=== PATIENT | male | born 1960 | race Caucasian/White ===

== ENCOUNTER 2016-12-21 17:07 | Observation (INO) | payer OTHER ==
[~2016-12-21] VITALS: Ht 182.9 cm; Wt 72.3 kg
[2016-12-21 17:07] VITALS: BP 116/84; PULSE 112; RESP 16; O2SAT 100
[2016-12-21 17:16] VITALS: BP 116/80; PULSE 110; RESP 16; O2SAT 98
[2016-12-21 17:36] LABS: BASOPHILS % (AUTO) 0.5 % (0-3); EOSINOPHILS % (AUTO) 1.7 % (0-5); MONOCYTES % (AUTO) 10.9 % (4-12); Mean Corpuscular Hemoglobin 28.2 pg (27.0-35.0); Mean Corpuscular Volume 90.9 fL (81-100); NEUTROPHILS % (AUTO) 71.8 % (40-74); Platelet Count 352 bil/L (150-400)
[2016-12-21 18:06] VITALS: BP 122/82; PULSE 102; RESP 17; O2SAT 96
[2016-12-21 18:08] LABS: TROPONIN T < 0.010 ug/L (0.0-0.011)
[2016-12-21 18:14] LABS: Magnesium 1.4 mg/dL (1.6-2.6)
--- NOTE | 2016-12-21 18:43 | DRSVH ---
PROCEDURE: X-RAY CHEST ONE VIEW, PORTABLE ([id number]) INDICATIONS: rapid heart rate TECHNIQUE: One view of the chest was acquired. COMPARISON: [facility], CR, XR CHEST 1V PORTABLE, 10/29/2016, 7:39 AM. [facility], CR, XR CHEST 2V AP/PA AND LAT, 12/20/2016, 4:38 PM. FINDINGS: Surgical changes and devices: None. Lungs and pleura: Left lower lobe infiltrate has increased, consistent with worsening of pneumonia. There is a small left pleural effusion. No pneumothorax. Mediastinum: Mediastinal contours appear normal. Heart size is normal. Bones and chest wall: No suspicious bony lesions. Overlying soft tissues appear unremarkable. IMPRESSION: Worsening of left lower lobe pneumonia. Dictated by: Nikki Cummings M.D. on 12/21/2016 at 18:38 Approved by: Nikki Cummings M.D. on 12/21/2016 at 18:41
[2016-12-21] MEDS ORDERED: oxyCODONE-Acetamin 5-325 mg Tablet PO PRN (20:40)
[2016-12-21] MEDS ORDERED: Piperacillin-Tazo 3.375 Gm Inj 3.375 GM in Dextrose 5% Minibag Plus 50 ML IV ONE (20:40)
[2016-12-21] MEDS ORDERED: 0.9% Sodium Chloride 1,000 ML IV ONE ×2 (20:40→22:05)
--- NOTE | 2016-12-21 20:47 | ED.REPORT ---
HPI-General Illness Date of Service Dec 21, 2016 ED Provider: Maisha Winchester MD History of Present Illness: Louie Andersen is a 56 year old man with a PMH of HTN, alcoholism, hypothyroid, microcytic anemia, and a recent CCU stay between 10/28/16 and 11/15/16 for pneumonia and sepsis. He states that he is about 20-30% of his pre CCU level of health, and that today he began to experience palpitations and sought evaluation by an onsite EMT at his work place who advised him to present to the ED for further evaluation. He denies chest pain, SOB, increased CASH beyond his current deconditioning, sweating, or any anxious sense of impending doom. Nursing Notes Stated Complaint: RAPIT HEART RATE Chief Complaint: Dysrhythmia/Cardiac Nursing Notes Reviewed: Yes Allergies: Coded Allergies: No Known Allergies (Verified , 12/21/16) Uncoded Allergies: No Known Allergies (Allergy, Severe, 05/16/04) Scheduled Allopurinol (Allopurinol) 100 Mg Tablet 100 MG PO BID Ascorbic Acid (Vitamin C) 1,000 Mg Tab.chew 1,000 MG PO DAILY Hydrochlorothiazide (Hydrochlorothiazide) 25 Mg Tablet 25 MG PO DAILY Metoprolol Succinate ER (Metoprolol Succinate ER) 100 Mg Tab.er.24h 100 MG PO DAILY Omeprazole (Omeprazole) 20 Mg Capsule.dr 20 MG PO QAM Scheduled PRN Albuterol HFA (Proair HFA) 8.5 Gm Hfa.aer.ad 2 PUFFS INHALATION Q4H PRN PRN For Shortness of Breath Oxycodone (Roxicodone) 5 Mg Tablet 5 MG PO Q4H PRN PRN For Pain General Time Seen by MD: 19:30 Chief Complaint Not feeling well Hx Obtained From: Patient Sudden in Onset?: Yes Onset Occurred: Just prior to arrival Symptom Duration: Waxes and wanes Severity: Current: No pain currently Severity: Maximum: No pain Recent Healthcare: Recent hospitalization Similar Sx Previous: Yes Review of Systems Full Review of Systems Constitutional: Reports: Weakness - generalized Cardiovascular: Reports: Palpitations Complete sys rev & neg: except as marked. Physical Exam Gen: A/O x3 pleasant cooperative man anxious to leave ED, NAD Neck: Supple, non tender, Full ROM, no thyromegally HEENT: PERRL, EOMI, no scleral icterus, no conjunctival pallor CV: Tachycardia with rate approx 120, regular Rhythm, no murmurs rubs or gallops Resp: Lungs CTA BL, no wheezing rales or rhonchi Extr: No cyanosis clubbing or edema Neuro: CN 2-12 grossly intact, no focal neurologic deficit. Vital Signs Vital Signs Date Time Temp Pulse Resp B/P Pulse Ox O2 Delivery O2 Flow Rate FiO2 12/21/16 21:37 94 18 140/95 98 Room Air 12/21/16 18:06 102 17 122/82 96 Room Air 12/21/16 17:16 110 16 116/80 98 12/21/16 17:07 36.7 112 16 116/84 100 Room Air Initial VS: Reviewed Interpretation & Diagnostics Lab Results Interpretation Result Diagram: 12/21/16 1724 12/21/16 1724 Test 12/21/16 17:24 White Blood Count 8.3th/mm3 (3.8-10.1) Red Blood Count 3.30mil/mm3 (4.40-5.80) Hemoglobin 9.3g/dL (13.8-17.2) Hematocrit 30.0% (41.0-50.0) Mean Corpuscular Volume 90.9fL (81-100) Mean Corpuscular Hemoglobin 28.2pg (27.0-35.0) Mean Corpuscular Hemoglobin Concent 31.0% (32.0-37.0) Red Cell Distribution Width 17.5% (12.3-15.4) Platelet Count 352bil/L (150-400) Neutrophils (%) (Auto) 71.8% (40-74) Lymphocytes (%) (Auto) 14.9% (14-46) Monocytes (%) (Auto) 10.9% (4-12) Eosinophils (%) (Auto) 1.7% (0-5) Basophils (%) (Auto) 0.5% (0-3) Prothrombin Time 9.5sec (8.1-12.5) Prothromb Time International Ratio 0.89ratio Sodium Level 136mEq/L (134-144) Potassium Level 4.1mEq/L (3.5-5.2) Chloride Level 102mEq/L (97-108) Carbon Dioxide Level 22mmol/L (18-29) Blood Urea Nitrogen 15mg/dL (6-24) Creatinine 0.59mg/dL (0.76-1.27) Estimat Glomerular Filtration Rate 152mL/min (>59) Glucose Level 107mg/dL (60-99) Calcium Level 8.5mg/dL (8.5-10.1) Magnesium Level 1.4mg/dL (1.6-2.6) Total Bilirubin 0.2mg/dL (0.0-1.2) Aspartate Amino Transf (AST/SGOT) 13U/L (0-50) Alanine Aminotransferase (ALT/SGPT) 8U/L (0-44) Alkaline Phosphatase 163U/L (25-150) Troponin T < 0.010ug/L (0.0-0.011) Total Protein 6.8g/dL (6.4-8.4) Albumin 3.3g/dL (3.4-5.0) Procalcitonin 0.04ng/mL (0.00-0.08) Thyroid Stimulating Hormone (TSH) 4.210uIU/mL (0.450-4.500) Free Thyroxine 0.79ng/dL (0.82-1.77) Hold Loera Top Tube Received (Received) Re-Eval/Medical Decision Med Decision/Clinical Course This is a patient who was recently in the ICU for 2 weeks with 9 days of intubation for pneumonia and sepsis now presenting with tachycardia and an LLL infiltrate on CXR. Blood and sputum cultures were drawn prior to administration of antibiotics. Given the patient's risk for HCAP or VAP it was felt prudent to admit this gentleman for IV antibiotics and further observation and evaluation. Counseled Regarding: Diagnosis, Lab results, Need for admission Discharge & Departure Shift Change Sign-Out Patient Care Transferred: No Discussed Complaint(s): Yes Laboratory Evaluation: Lab evaluation discussed Imaging Studies: Imaging discussed Primary Impression: HCAP (healthcare-associated pneumonia) Disposition: ADMITTED TO HOSPITAL Discharge Condition All VS Reviewed: Yes Condition: Stable Referrals: Krishna Cortes MD (PCP) Attending Statement I agree with resident's note. 56-year-old male with recent ICU admission for pneumonia requiring intubation and pressors here with tachycardia and worsening pneumonia on chest x-ray. At this time, his blood pressure is normal and he does not require further intervention. He has been given broad-spectrum antibiotics to cover for healthcare associated pneumonia and admitted to the hospitalist service. copies to: Krishna Cortes MD, David E DO Dec 21, 2016 19:32 Maisha Winchester MD Dec 22, 2016 00:12
[2016-12-21] MEDS ORDERED: Vancomycin Inj 1,500 MG in 0.9% Sodium Chloride 500 ML IV ONE (20:50)
[2016-12-21] MEDS ORDERED: Ciprofloxacin Inj 400 MG in IV Premix 1 EACH IV ONE (21:05)
[2016-12-21] MEDS ORDERED: Levofloxacin 750 mg/150 mL D5W IV ONE (21:10)
[2016-12-21] MEDS ORDERED: OXYC-474 PO (21:15)
[2016-12-21] MEDS ORDERED: ALBU8.5H2 INHALATION (21:15)
[2016-12-21] MEDS ORDERED: METO-274 PO (21:15)
[2016-12-21] MEDS ORDERED: ASCO100089 PO (21:15)
[2016-12-21] MEDS ORDERED: HYDR25TA4 PO (21:15)
[2016-12-21] MEDS ORDERED: OMEP20CA11 PO (21:15)
[2016-12-21] MEDS ORDERED: ZYL100 PO (21:15)
[2016-12-21 21:37] VITALS: BP 140/95; PULSE 94; RESP 18; O2SAT 98
[2016-12-21] MEDS ORDERED: Albuterol 2.5 mg/3 mL Inhalation Solution NEB PRN (21:40)
[2016-12-21] MEDS ORDERED: Alum-Mag Hydrox-Simeth 30 mL Suspension PO PRN (21:40)
[2016-12-21] MEDS ORDERED: Polyethylene Glycol (PEG) 17 Gm Powder PO PRN (21:40)
[2016-12-21 23:07] VITALS: BP 125/76; PULSE 95; RESP 18; O2SAT 97
[2016-12-21 23:26] LABS: INR 0.89 ratio
[2016-12-21] MEDS ORDERED: Vancomycin Dose per Pharmacist XX SCH (23:35)
--- NOTE | 2016-12-21 23:56 | PCM.HPMED ---
Subjective Date of Service Dec 21, 2016 Primary Provider: Admitting Physician: Anni Melgar DO Primary Care Physician: Teresa Hernandez MD Attending Physician: Anni Melgar DO Admit Status: From the Emergency Department Chief Complaint: Heart palpitations and not feeling well History of Present Illness: 56-year-old male with past medical history of hypertension, hyperlipidemia, alcoholism, and recent hospitalization for respiratory failure presented to the emergency department via EMS after feeling heart palpitations while at work. According to the medics he was found to be in atrial fibrillation with a rate between 150 and 200, he was given Cardizem enroute. Patient was hospitalized October 28 through November 15, 2016, he was intubated for 9 of those days. Since that time she has continued to be tired and have musculoskeletal pain that tends to move around to different parts of his body. He reports being at work this morning with no acute worsening of any symptoms however he started to feel dizzy and had a flutter in his chest. He sought evaluation from an on- site EMT at his workplace who advised he take the ambulance to the emergency department. Aside from the lightheadedness he reports no associated symptoms at the time of the event. However, in the last 2-3 weeks he has been experiencing some fluttery feelings in his chest, it is worse with lying down. For the last 2-3 nights it has happened every night while lying in bed. He will take some additional pain medicine and fall asleep, the feeling will be gone when he awakes in the morning. He continues to have some pain with deep breaths which has been consistent since discharge from hospital. Patient reports neuropathy in feet that is improving, he describes "phantom" pains throughout his body that come and go. He does report a 30 pound weight loss associated with his hospitalization. He reports mild shortness of breath that has been stable, no chest pain or pressure, no diaphoresis, no abdominal pain. In the emergency department patient was found to have sinus tachycardia initially at a rate of 112. Otherwise normal vital signs, he has a worsening left lower lobe pneumonia seen on chest x-ray. Laboratory evaluation revealed anemia with a hemoglobin of 9.3 and hematocrit of 30, magnesium 1.4, negative troponin, and pro-calcitonin 0.04. Review of Systems: A comprehensive review of systems was conducted with the patient and found to be negative except as above in the History of Present Illness. Allergies Coded Allergies: No Known Allergies (Verified , 12/21/16) Uncoded Allergies: No Known Allergies (Allergy, Severe, 05/16/04) Home Medications 1. albuterol HFA 2 puffs inhaled every 4 hours when necessary for shortness of breath 2. Allopurinol 100 mg by mouth twice a day 3. Vitamin C 1000 mg by mouth daily 4. Hydrochlorothiazide 25 mg daily 5. Metoprolol succinate ER 100 mg by mouth daily 6. Omeprazole 20 mg by mouth every morning 7. Oxycodone 5 mg by mouth every 4 hours when necessary for pain 8. Imodium 8 mg by mouth every a.m. 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 He is able to ambulate independently Exam Vital Signs Vital Sign - Last Date Time Temp Pulse Resp B/P Pulse Ox O2 Delivery O2 Flow Rate FiO2 12/21/16 21:37 94 18 140/95 98 Room Air 12/21/16 17:07 36.7 Exam General: No acute distress, well-developed, well-nourished, appropriately interactive HEENT: Normocephalic, atraumatic. External ears without defect. Pupils equal, round, and reactive to light and accommodation. Anicteric sclerae, moist conjunctivae, and no lid lag. Enlarged erythematous nose, Oropharynx free of erythema and cobble stoning with moist mucosa. Neck: Supple with full range of motion. No jugular venous distension. No bruits. No lymphadenopathy or thyromegaly. Cardiovascular: Regular rate (90's) and rhythm with no murmurs, rubs, or gallops appreciated Pulmonary: Crackles prominent in left lung base, no wheezes, or rhonchi. Normal respiratory effort with no use of accessory muscles. Abdomen: Bowel tones present. Soft, nontender, nondistended. No hepatosplenomegaly or masses appreciated. Extremities: No clubbing, cyanosis, edema, or lymphadenopathy appreciated. Skin: Normal temperature, turgor, and texture; no rash, ulcers, or subcutaneous nodules appreciated. Neurological: Cranial nerves grossly intact. Normal muscle strength, tone, and bulk. No known gait impairment. Psychiatric: Normal mood and affect. Alert and oriented to person, place, and time. Lab and Diagnostics Labs Prognosis troponins 0.04 Troponin less than 0.01 Magnesium 1.4 Result Diagram: 12/21/16172312/21/16 172 X-Rays, CTs and MRIs PROCEDURE: X-RAY CHEST ONE VIEW, PORTABLE ([id number]) COMPARISON: [facility], CR, XR CHEST 1V PORTABLE, 10/29/2016, 7: 39 AM. [facility], CR, XR CHEST 2V AP/PA AND LAT, 12/20/2016, 4: 38 PM. IMPRESSION: Worsening of left lower lobe pneumonia. Dictated by: Nikki Cummings M.D. on 12/21/2016 at 18:38 Assessment & Plan 56-year-old male with past medical history of hypertension, hyperlipidemia, alcoholism presented to the emergency department via EMS after feeling heart palpitations while at work. According to the medics he was found to be in atrial fibrillation with a rate between 150 and 200, he was given Cardizem by the medics. He had a recent hospital stay including 9 days of intubation at [facility] from October 28 to 11/25/2016. On x-ray he has a left lower lobe infiltrate 1. Health care associated pneumonia with history of mechanical ventilation, present on admission, acute - Patient with hospitalization at [facility] from October 28 to 2016 including 9 days of intubation - Chest x-ray shows worsening left lower lobe pneumonia - Droplet precautions - Respiratory viral PCR, strep pneumo and legionella urine antigens - Sputum culture - MRSA nasal screen - Patient started on vancomycin, Zosyn, and levofloxacin in emergency department continue these antibiotics, narrow therapy when appropriate - Incentive spirometer 2. New onset atrial fibrillation with Rapid ventricular response, present on admission, resolved - Patient reports feeling some palpitations while lying in bed at night or sitting at a desk over the last week he has felt them daily in the last 3-4 days each episode would last more than a few minutes, at night he would fall asleep and they would be gone when he woke up. - [id number] score is 1 for Hypertension making patient appropriate for anticoagulation with warfarin, novel agent, or aspirin. - Patient has bled score is 2 for hypertension and alcohol use, he is at moderate risk for major bleed - Patient given single dose 80mg Lovenox - Day hospitalist to discuss anticoagulation options and initiate therapy - Stool guaiac ordered - Monitor patient on telemetry - Echocardiogram ordered 3. Alcoholism, present on admission, chronic - Patient drinks 6-7 shots of tequila and a couple beers per night. He restarted drinking about 2 weeks ago after his last hospitalization. - Patient is very functional with his drinking in that he goes to work daily. - Last drink was the evening of 12/20/2016 - CIDE protocol 4. Tobacco use, present on admission, chronic - Patient is currently smoking about 3 packs of cigarettes per week down from 1 pack per day prior to his recent hospitalization - Cessation counseling, discussed importance of tobacco cessation 5. Hypertension, present on admission, chronic - Continue metoprolol, hydrochlorothiazide - Patient has had lisinopril in the past however added to his other blood pressure medications it tends to decrease his blood pressure too much - Monitor vital signs every 4 hours 6. History of Hypothyroidism, present on admission, not currently active - Patient previously was taking levothyroxine however it has not been necessary in the last couple months so he was told to stop taking it. - TSH and free T4 ordered 7. History of gastric ulcers, present on admission, not currently active - Likely related to alcohol use - Continue PPI daily 8. Chronic pain, present on admission, chronic - Patient has been having various musculoskeletal pains that tend to migrate around his body since discharge from his ICU hospitalization - Patient states he is currently taking 10 mg hydrocodone every 4-6 hours in the form of Vicodin. - His most recent prescription on external medication history is for oxycodone 5 mg by mouth every 4 hours when necessary for pain - Continue home dose oxycodone. 9. History of opiate abuse, present on admission, chronic - 2 years ago patient had difficulty weaning off of opiate pain medication. He was seen at [facility] where he was able to wean with Suboxone over a year and a half. He had recently contacted [facility] who reports they no longer have this program. - mountain services manager consult for substance abuse and resources upon discharge 10. Chronic diarrhea, present on admission, active - Imodium daily - Florastor twice daily 11. Hypomagnesemia, present on admission, acute - 64 mg Slow-Mag daily - Serum magnesium in a.m. Acetaminophen for mild pain when necessary. Bowel regimen Senna and MiraLAX PRN. Zofran when necessary for nausea and vomiting. DVT prophylaxis with sub cutaneous Lovenox Patient was admitted under inpatient status with expected length of stay greater than 2 midnights due to severity of presenting symptoms, risk of adverse event, and complexity of treatment plan. Pain Evaluation: Adequate Pain Control GI Prophylaxis: Proton Pump Inhibitor VTE Prophylaxis: Sub-Q Enoxaparin VTE Mechanical Devices: Intermittant Pneumatic CD Resuscitation Status: CPR: Attempt Resuscitation Attending Statement The patient was seen and examined together with house staff on 12/21/16 and I agree with the history, exam and plan as outlined in the note above. Dorothy Casiano DO Dec 21, 2016 23:56 Anni Melgar DO Dec 22, 2016 03:41
[2016-12-22] VITALS (8 sets, daily range): BP systolic 126; BP diastolic 77–82; PULSE 92–103; RESP 16–20; O2SAT 95–100
[2016-12-22] MEDS ORDERED: Magnesium Sulf 2 Gm/50mL Water 2 GM in IV Premix 1 EACH IV ONE (00:15)
[2016-12-22] MEDS: Magnesium Chloride SR 64 mg ER24 Tablet PO SCH ×2 (00:39→08:42)
[2016-12-22] MEDS: Thiamine Inj 100 MG in 0.9% Sodium Chloride 100 ML IV SCH ×2 (00:40→08:41)
[2016-12-22] MEDS: Albuterol-Ipratropium 3 mL Inhalation Solution NEB SCH ×3 (00:46→09:44)
--- NOTE | 2016-12-22 00:58 | NUR ---
Admit received report from Kelsie Ennis from the ED. Pt arrived to room approximately at 2305 via gurney. Transferred self to bed. pt came with IV Levaquin was running at 100 ml/hr. Denies pain. VSS. pt on RA with SPO2 97%. will continue to monitor.
--- NOTE | 2016-12-22 01:33 | PCM.CONPHA ---
Subjective Date of Service: Dec 21, 2016 Requesting Provider: Laura Kwan Heart palpitations and not feeling well History of Present Illness Ventulator associated pneumonia (recent hospitalization last month with 9 days intubated) Reason for Pharmacy Consult: Vancomycin Dosing Objective Vital Signs Date Time Temp Pulse Resp B/P Pulse Ox O2 Delivery O2 Flow Rate FiO2 12/21/16 23:08 95 17 123/86 95 Room Air 12/21/16 23:07 36.4 95 18 125/76 97 Room Air 12/21/16 21:37 94 18 140/95 98 Room Air 12/21/16 18:06 102 17 122/82 96 Room Air 12/21/16 17:16 110 16 116/80 98 12/21/16 17:07 36.7 112 16 116/84 100 Room Air Intake and Output 12/20/16 12/21/16 12/22/16 00:00 00:00 00:00 Intake Total 2000 ml Balance 2000 ml Weight (Kilograms): 72.300 Height (Feet): 6 Height (Inches): 0.00 Test 12/21/16 17:24 White Blood Count 8.3th/mm3 (3.8-10.1) Red Blood Count 3.30mil/mm3 (4.40-5.80) Hemoglobin 9.3g/dL (13.8-17.2) Hematocrit 30.0% (41.0-50.0) Mean Corpuscular Volume 90.9fL (81-100) Mean Corpuscular Hemoglobin 28.2pg (27.0-35.0) Mean Corpuscular Hemoglobin Concent 31.0% (32.0-37.0) Red Cell Distribution Width 17.5% (12.3-15.4) Platelet Count 352bil/L (150-400) Neutrophils (%) (Auto) 71.8% (40-74) Lymphocytes (%) (Auto) 14.9% (14-46) Monocytes (%) (Auto) 10.9% (4-12) Eosinophils (%) (Auto) 1.7% (0-5) Basophils (%) (Auto) 0.5% (0-3) Prothrombin Time 9.5sec (8.1-12.5) Prothromb Time International Ratio 0.89ratio Sodium Level 136mEq/L (134-144) Potassium Level 4.1mEq/L (3.5-5.2) Chloride Level 102mEq/L (97-108) Carbon Dioxide Level 22mmol/L (18-29) Blood Urea Nitrogen 15mg/dL (6-24) Creatinine 0.59mg/dL (0.76-1.27) Estimat Glomerular Filtration Rate 152mL/min (>59) Glucose Level 107mg/dL (60-99) Calcium Level 8.5mg/dL (8.5-10.1) Magnesium Level 1.4mg/dL (1.6-2.6) Total Bilirubin 0.2mg/dL (0.0-1.2) Aspartate Amino Transf (AST/SGOT) 13U/L (0-50) Alanine Aminotransferase (ALT/SGPT) 8U/L (0-44) Alkaline Phosphatase 163U/L (25-150) Troponin T < 0.010ug/L (0.0-0.011) Total Protein 6.8g/dL (6.4-8.4) Albumin 3.3g/dL (3.4-5.0) Procalcitonin 0.04ng/mL (0.00-0.08) Thyroid Stimulating Hormone (TSH) 4.210uIU/mL (0.450-4.500) Free Thyroxine 0.79ng/dL (0.82-1.77) Hold Loera Top Tube Received (Received) Assessment/Plan Assessment/Plan A/ - 56 y/o male patient required Vancomycin therapy to treat ventilator associated pneumonia. He was hospitalized 9 days intubated in Nov, 2016 - Afebrile, WBC: 8.3, sputum, blood cultures (x2), MRSA: pending - In ED, received loading dose of Vancomycin 1.5g iv @2348, comitant abx(s) : levofloxacin, zosyn - Wt: 72.3 kg, ht: 182.9 cm, SCr: 0.59 mg/dL, est. clearance ~140 ml/min, BMI: 21.6 kg/m2, Vd ~ 51L P/ - Give Vancomycin 1.25G iv q8h. Trough level ordered before 4th dose @2130 on 12/22. This regimen would produce a trough around 16-17 Pharmacy will continue to monitor and make necessary adjustment Thank you for consulting clinical pharmacy in the care of this patient Bruno Cates PharmD, [facility] Elder Cates Dec 22, 2016 01:32
[2016-12-22] MEDS: Piperacillin-Tazo 3.375 Gm Inj 3.375 GM in Dextrose 5% Minibag Plus 50 ML IV SCH ×2 (01:59→09:56)
[2016-12-22] MEDS ORDERED: Vancomycin Inj 1,250 MG in 0.9% Sodium Chloride 250 ML IV SCH (06:00)
[2016-12-22 06:23] LABS: BASOPHILS % (AUTO) 0.3 % (0-3); EOSINOPHILS % (AUTO) 2.7 % (0-5); MONOCYTES % (AUTO) 5.1 % (4-12); Mean Corpuscular Hemoglobin 27.9 pg (27.0-35.0); Mean Corpuscular Volume 91.1 fL (81-100); NEUTROPHILS % (AUTO) 79.4 % (40-74); Platelet Count 303 bil/L (150-400)
[2016-12-22] MEDS ORDERED: Pantoprazole 20 mg ER24 Tablet PO SCH (06:30)
[2016-12-22 06:35] LABS: INR 0.96 ratio
[2016-12-22 06:51] LABS: Magnesium 1.4 mg/dL (1.6-2.6)
[2016-12-22] MEDS ORDERED: MeTOProlol XL 50 mg ER24 Tablet PO SCH (08:30)
[2016-12-22] MEDS ORDERED: Magnesium Chloride SR 64 mg ER24 Tablet PO SCH (08:30)
[2016-12-22] MEDS ORDERED: Ascorbic Acid 500 mg Tablet PO SCH (08:30)
[2016-12-22] MEDS ORDERED: Multivit-Miner-Folic Acid-Iron Tablet PO SCH (08:30)
--- NOTE | 2016-12-22 08:36 | NUR ---
Social Work: Brief Note Data: Pt is a 56 y/o male admitted for H/A Pneumonia. Pt's PCP is Dr Mix, pt's insurance is [employer]. Readmit score not listed. EMR reviewed. Per H&P, pt reports 6-7 shots of tequila and a couple beers per night and daily marijuana use. HAND SIGN WRITER will complete CD assessment when pt is appropriate to do so. HAND SIGN WRITER will continue to follow. Assessment: Pt who is independent at baseline. Plan: Pt will likely d/c home via POV with no d/c planning needs. HAND SIGN WRITER will complete CD assessment when pt is appropriate to do so. HAND SIGN WRITER will continue to follow. RODRI Méndez
[2016-12-22] MEDS ORDERED: Potassium Chloride 20 mEq SR Tablet PO ONE (09:10)
[2016-12-22] MEDS ORDERED: ASPI-973 PO (10:41)
[2016-12-22] MEDS ORDERED: AMOX500T2 PO ×2 (10:41→12:34)
--- NOTE | 2016-12-22 12:36 | PCM.DIMED ---
Danielle Huffman DO 12/22/16 1045: Discharge Instructions Date of Service Dec 22, 2016 Dates of Hospitalization Dec 21, 2016 at 21:52 Diet Heart Healthy Activity Limited until seen by PCP Call your provider Fever or Chills, Shortness of breath, Bleeding, Chest pain, Excessive diarrhea Patient Instructions Continue antibiotics for pneumonia. Take amoxicillin 1000 mg every 8 hours for 6 days. While taking antibiotics, you should also take probiotics, such as eating yogurt or sauerkraut. For atrial fibrillation, start taking aspirin 81 mg once daily. Follow up with your primary care provider in 1 week to have a repeat EKG to look for atrial fibrillation and to discuss possibly altering your anti-coagulation. At your follow up appointment with your primary care provider, you should discuss seeking treatment for opioid dependence. You should also follow up with a resident manager for further investigation into atrial fibrillation. Eat 2 bananas per day. Follow up BMP to check your potassium level in 1 week. Follow-up Provider: RACHEL GARCIA MD Follow-up with PCP in: 1 week William Corral DO 12/23/16 0716: Discharge Instructions Attending's Statement Read and agree Danielle Huffman DO Dec 22, 2016 10:45 William Corral DO Dec 23, 2016 07:16
--- NOTE | 2016-12-22 13:06 | NUR ---
Discharge Patient given discharge orders. Patient given medication list with written and verbal instructions when next dose of medication is due. Patient given follow up information. Patient given informational packets. Patient reminded to leave with all personal belongings. Patient awaiting transportation that is to arrive at 1330.
--- NOTE | 2016-12-22 13:12 | NUR ---
Social Work: Discharge Data: Pt is on day 1 of hospitalization. D/C orders are in. EMR reviewed. requested BAGGAGE SCREENER bring suboxone information for pt at his request. BAGGAGE SCREENER met with pt for Chemical Dependency assessment, see assessment note. Pt accepted information and phone number for [facility] and plans to call them first thing on Saturday morning to set up an appointment. No further d/c planning needs at this time. BAGGAGE SCREENER will continue to follow if needs arise. Assessment: Pt who is independent at baseline, hx of alcohol and oxy use. Plan: Pt will d/c home via POV today with information for [facility] for suboxone. No further d/c planning needs at this time. BAGGAGE SCREENER will continue to follow if needs arise. RODRI Méndez
--- NOTE | 2016-12-22 13:15 | NUR ---
Social Work: Chemical Dependency Assessment Current Circumstances: Pt was admitted on 12/21/16 for H/A pneumonia. Pt's states he is here because he got sick and wants to get off of the oxycodone he has been taking. Hx of substance use: Pt reports that he drinks alcohol and has since his 20's. He does not see this as a problem in his life stating that it only possibly affects his health. Pt states that he had hip surgery 3 years ago and was given oxycodone and he became addicted and continued to take it. Pt had a recent hospitalization in October of 2016 and states that he again was prescribed oxycodone and started using recreationally again. Hx of treatment: Pt states he went to [facility] for outpt treatment after his use of oxycodone in October of 2016. He states that they no longer do suboxone and that he wants to know current resources. Hx of withdrawal: Pt states that he feels horrible for a few weeks and gets diarrhea. Pt reports no alcohol withdrawals. Family Hx: Pt states he is adopted and that he doesn't know about his adoptive parent's drug use either. Hx of sobriety: Pt reports that he was clean of oxycodone for about 2 years. Pt has continued to drink alcohol daily. Patients perception of use: Pt states he wants to stop using oxycodone, but that he plans to keep drinking and smoking. Suicide Risk: Pt denies and suicidal or homicidal thoughts, ideas, or plans. Recommended Resources: Pt accepted the card for [facility] and declined any other resources stating that he will call them on Saturday morning to get an appointment. RODRI Méndez
--- NOTE | 2016-12-22 13:22 | PCM.DC.MED ---
Discharge Summary Date of Service Dec 22, 2016 Dates of Hospitalization Date of Hospital Admission Dec 21, 2016 at 21:52 Date of Discharge: Dec 22, 2016 Providers: Admitting Physician: Anni Melgar DO Primary Care Physician: Teresa Hernandez MD Attending Physician: Anni Melgar DO Diagnosis at Time of Discharge Diagnosis at Time of Discharge 1. Health care associated pneumococcal pneumonia with history of mechanical ventilation 2. New onset atrial fibrillation with Rapid ventricular response 3. Hypokalemia 4. Alcoholism 5. Tobacco use 6. Hypertension 7. History of Hypothyroidism 8. History of gastric ulcers 9. Chronic pain 10. History of opiate abuse 11. Chronic diarrhea 12. Hypomagnesemia Procedures XRay, CTs & MRIs PROCEDURE: X-RAY CHEST ONE VIEW, PORTABLE ([id number]) COMPARISON: [facility], CR, XR CHEST 1V PORTABLE, 10/29/2016, 7: 39 AM. [facility], CR, XR CHEST 2V AP/PA AND LAT, 12/20/2016, 4: 38 PM. IMPRESSION: Worsening of left lower lobe pneumonia. Dictated by: Nikki Cummings M.D. on 12/21/2016 at 18:38 Cardiac Echo Impression Echocardiogram Report Interpretation Summary The left ventricle is normal in size. The ejection fraction is estimated to be 60-65%. The right ventricle grossly appears normal in size with probable normal systolic function. There is mild tricuspid regurgitation. Pulmonary artery pressures cannot be estimated because of the lack of a measurable TR jet velocity. The IVC is of normal diameter and collapses greater than 50% with a sniff. This suggests a low right atrial pressure of 3 mm Hg. Reading Physician: MINNA Brief History From the history and physical performed by Dr. Dorothy Casiano on 12/21/2016: 56-year-old male with past medical history of hypertension, hyperlipidemia, alcoholism, and recent hospitalization for respiratory failure presented to the emergency department via EMS after feeling heart palpitations while at work. According to the medics he was found to be in atrial fibrillation with a rate between 150 and 200, he was given Cardizem enroute. Patient was hospitalized October 28 through November 15, 2016, he was intubated for 9 of those days. Since that time she has continued to be tired and have musculoskeletal pain that tends to move around to different parts of his body. He reports being at work this morning with no acute worsening of any symptoms however he started to feel dizzy and had a flutter in his chest. He sought evaluation from an on- site EMT at his workplace who advised he take the ambulance to the emergency department. Aside from the lightheadedness he reports no associated symptoms at the time of the event. However, in the last 2-3 weeks he has been experiencing some fluttery feelings in his chest, it is worse with lying down. For the last 2-3 nights it has happened every night while lying in bed. He will take some additional pain medicine and fall asleep, the feeling will be gone when he awakes in the morning. He continues to have some pain with deep breaths which has been consistent since discharge from hospital. Patient reports neuropathy in feet that is improving, he describes "phantom" pains throughout his body that come and go. He does report a 30 pound weight loss associated with his hospitalization. He reports mild shortness of breath that has been stable, no chest pain or pressure, no diaphoresis, no abdominal pain. In the emergency department patient was found to have sinus tachycardia initially at a rate of 112. Otherwise normal vital signs, he has a worsening left lower lobe pneumonia seen on chest x-ray. Laboratory evaluation revealed anemia with a hemoglobin of 9.3 and hematocrit of 30, magnesium 1.4, negative troponin, and pro-calcitonin 0.04. Hospital Course 56-year-old male with past medical history of hypertension, hyperlipidemia, alcoholism presented to the emergency department via EMS after feeling heart palpitations while at work. According to the medics he was found to be in atrial fibrillation with a rate between 150 and 200, he was given Cardizem by the medics. He had a recent hospital stay including 9 days of intubation at [facility] from October 28 to 11/25/2016. On x-ray, he has a left lower lobe infiltrate. 1. Health care associated pneumococcal pneumonia with history of mechanical ventilation, present on admission, acute - Patient with hospitalization at [facility] from October 28 to 2016 including 9 days of intubation - Chest x-ray showed worsening left lower lobe pneumonia. However, pt did not have a cough. - Strep. pneumoniae antigen positive - Droplet precautions - Respiratory viral PCR legionella urine antigens were negative - MRSA nasal screen negative - Patient started on vancomycin, Zosyn, and levofloxacin in emergency department. - Switched to amoxicillin PO for outpatient treatment. 2. New onset atrial fibrillation with Rapid ventricular response, present on admission, resolved - Patient converted to sinus tachycardia - Patient reported feeling some palpitations while lying in bed at night or sitting at a desk over the last week he has felt them daily in the last 3-4 days each episode would last more than a few minutes, at night he would fall asleep and they would be gone when he woke up. -Echocardiogram showed normal left systolic and right systolic function as above - [id number] score is 1 for Hypertension making patient appropriate for anticoagulation with warfarin, novel agent, or aspirin. - Patient has bled score is 2 for hypertension and alcohol use, he is at moderate risk for major bleed - Patient given single dose 80mg Lovenox - Patient started on aspirin 81 mg once daily for anticoagulation for now, based on his above [id number] score and HAS BLED score, and advised to follow up with PCP to discuss possibly changing anticoagulation. - He will also need a referral to cardiology for possible further work up of atrial fibrillation. 3. Hypokalemia, not present on admission, acute. -Potassium 3.1 -Pt given 40 meq of potassium chloride -Recommend repeat BMP in 1 week with follow up appointment with PCP 4. Alcoholism, present on admission, chronic - Patient drinks 6-7 shots of tequila and a couple beers per night. He restarted drinking about 2 weeks ago after his last hospitalization. - Patient is very functional with his drinking in that he goes to work daily. - Last drink was the evening of 12/20/2016 - CIWA protocol was started - Counseled about importance of decreasing alcohol intake 5. Tobacco use, present on admission, chronic - Patient is currently smoking about 3 packs of cigarettes per week down from 1 pack per day prior to his recent hospitalization - Cessation counseling, discussed importance of tobacco cessation 6. Hypertension, present on admission, chronic - Continue metoprolol, hydrochlorothiazide - Patient has had lisinopril in the past however added to his other blood pressure medications it tends to decrease his blood pressure too much 7. History of Hypothyroidism, present on admission, not currently active - Patient previously was taking levothyroxine however it has not been necessary in the last couple months so he was told to stop taking it. - TSH within normal limits and free T4 mildly low, recommend following up as an outpatient. 8. History of gastric ulcers, present on admission, not currently active - Likely related to alcohol use - Continued PPI daily 9. Chronic pain, present on admission, chronic - Patient has been having various musculoskeletal pains that tend to migrate around his body since discharge from his ICU hospitalization - Patient states he is currently taking 10 mg hydrocodone every 4-6 hours in the form of Vicodin. - His most recent prescription on external medication history is for oxycodone 5 mg by mouth every 4 hours when necessary for pain - Continued home dose oxycodone. 10. History of opiate abuse, present on admission, chronic - 2 years ago patient had difficulty weaning off of opiate pain medication. He was seen at [facility] where he was able to wean with Suboxone over a year and a half. He had recently contacted [facility] who reports they no longer have this program. - surgical services coordinator consulted for substance abuse and resources upon discharge 11. Chronic diarrhea, present on admission, active - Imodium daily - Florastor twice daily 12. Hypomagnesemia, present on admission, acute - 64 mg Slow-Mag daily - Recommend repeating a magnesium level in 1 week with follow up appointment with PCP Exam Vital Signs (Last) Date Time Temp Pulse Resp B/P Pulse Ox O2 Delivery O2 Flow Rate FiO2 12/22/16 10:25 102 12/22/16 09:54 36.9 18 126/82 100 Room Air Exam General: No acute distress, well-developed, well-nourished, appropriately interactive HEENT: Normocephalic, atraumatic. External ears without defect. Pupils equal, round, and reactive to light and accommodation. Anicteric sclerae, moist conjunctivae, and no lid lag. Neck: Supple with full range of motion. Cardiovascular: Tachycardia and regular rhythm with no murmurs, rubs, or gallops appreciated Pulmonary: Clear to auscultation bilaterally with no rales, wheezes, or rhonchi. Normal respiratory effort with no use of accessory muscles. Abdomen: Bowel tones present. Soft, nontender, nondistended. No hepatosplenomegaly or masses appreciated. Extremities: No clubbing, cyanosis, edema, or lymphadenopathy appreciated. Skin: Normal temperature, turgor, and texture; no rash, ulcers, or subcutaneous nodules appreciated. Neurological: Cranial nerves grossly intact. Normal muscle strength, tone, and bulk. No known gait impairment. Psychiatric: Normal mood and affect. Alert and oriented to person, place, and time. Test 12/21/16 17:24 12/21/16 21:17 12/22/16 05:50 12/22/16 08:35 Troponin T < 0.010ug/L (0.0-0.011) Thyroid Stimulating Hormone (TSH) 4.210uIU/mL (0.450-4.500) Free Thyroxine 0.79ng/dL (0.82-1.77) Hold Loera Top Tube Received (Received) Urine Legionella pneumophilia Ag Negative (Negative) White Blood Count 7.9th/mm3 (3.8-10.1) Red Blood Count 3.37mil/mm3 (4.40-5.80) Hemoglobin 9.4g/dL (13.8-17.2) Hematocrit 30.7% (41.0-50.0) Mean Corpuscular Volume 91.1fL (81-100) Mean Corpuscular Hemoglobin 27.9pg (27.0-35.0) Mean Corpuscular Hemoglobin Concent 30.6% (32.0-37.0) Red Cell Distribution Width 17.2% (12.3-15.4) Platelet Count 303bil/L (150-400) Neutrophils (%) (Auto) 79.4% (40-74) Lymphocytes (%) (Auto) 12.2% (14-46) Monocytes (%) (Auto) 5.1% (4-12) Eosinophils (%) (Auto) 2.7% (0-5) Basophils (%) (Auto) 0.3% (0-3) Prothrombin Time 10.3sec (8.1-12.5) Prothromb Time International Ratio 0.96ratio Sodium Level 137mEq/L (134-144) Potassium Level 3.1mEq/L (3.5-5.2) Chloride Level 103mEq/L (97-108) Carbon Dioxide Level 19mmol/L (18-29) Blood Urea Nitrogen 8mg/dL (6-24) Creatinine 0.51mg/dL (0.76-1.27) Estimat Glomerular Filtration Rate 179mL/min (>59) Glucose Level 103mg/dL (60-99) Calcium Level 8.5mg/dL (8.5-10.1) Magnesium Level 1.4mg/dL (1.6-2.6) Total Bilirubin 0.5mg/dL (0.0-1.2) Aspartate Amino Transf (AST/SGOT) 17U/L (0-50) Alanine Aminotransferase (ALT/SGPT) 7U/L (0-44) Alkaline Phosphatase 133U/L (25-150) Total Protein 6.1g/dL (6.4-8.4) Albumin 3.1g/dL (3.4-5.0) Procalcitonin 0.04ng/mL (0.00-0.08) Hold Urine Received (Received) Discharge Medications Discharge Medications Allopurinol (Allopurinol) 100 Mg Tablet 100 MG PO BID (Reported) Amoxicillin (Amoxicillin) 500 Mg Tablet 1,000 MG PO TID Prescribed by: DANIELLE HUFFMAN DO Ascorbic Acid (Vitamin C) 1,000 Mg Tab.chew 1,000 MG PO DAILY (Reported) Aspirin (Aspirin) 81 Mg Tablet 81 MG PO DAILY Prescribed by: DANIELLE HUFFMAN DO Hydrochlorothiazide (Hydrochlorothiazide) 25 Mg Tablet 25 MG PO DAILY (Reported ) Metoprolol Succinate ER (Metoprolol Succinate ER) 100 Mg Tab.er.24h 100 MG PO DAILY (Reported) Omeprazole (Omeprazole) 20 Mg Capsule.dr 20 MG PO QAM (Reported) As needed Albuterol HFA (Proair HFA) 8.5 Gm Hfa.aer.ad 2 PUFFS INHALATION Q4H PRN PRN For Shortness of Breath (Reported) Oxycodone (Roxicodone) 5 Mg Tablet 5 MG PO Q4H PRN PRN For Pain (Reported) Followup Plan Discharge Diet: Heart Healthy Discharge Activity: Limited until seen by PCP Patient Instructions Continue antibiotics for pneumonia. Take amoxicillin 1000 mg every 8 hours for 6 days. While taking antibiotics, you should also take probiotics, such as eating yogurt or sauerkraut. For atrial fibrillation, start taking aspirin 81 mg once daily. Follow up with your primary care provider in 1 week to have a repeat EKG to look for atrial fibrillation and to discuss possibly altering your anti-coagulation. At your follow up appointment with your primary care provider, you should discuss seeking treatment for opioid dependence. You should also follow up with a pot sander for further investigation into atrial fibrillation. Eat 2 bananas per day. Follow up BMP to check your potassium level in 1 week. Follow-up Provider: TERESA HERNANDEZ MD Follow-up with PCP in: 1 week Time spent 40 minutes Attending Statement I have seen and evaluated patient at bedside in addition to directly supervising care provided by resident physician. I agree with above documentation. Given recent pmhx concern for HCAP was significant, however based on urine stable and medical stability, DC on oral antibiotics deemed appropriate. Pt left in stable condition with plan for FU with pcp in 3-5 days following DC. copies to: TERESA HERNANDEZ MD, Marissa L DO Dec 22, 2016 13:22 William Corral DO Dec 23, 2016 11:15 3.1g/dL (3.4-5.0) Procalcitonin 0.04ng/mL (0.00-0.08) Hold Urine Received (Received) Discharge Medications Discharge Medications Allopurinol (Allopurinol) 100 Mg Tablet 100 MG PO BID (Reported) Amoxicillin (Amoxicillin) 500 Mg Tablet 1,000 MG PO TID Prescribed by: DANIELLE HUFFMAN DO Ascorbic Acid (Vitamin C) 1,000 Mg Tab.chew 1,000 MG PO DAILY (Reported) Aspirin (Aspirin) 81 Mg Tablet 81 MG PO DAILY Prescribed by: DANIELLE HUFFMAN DO Hydrochlorothiazide (Hydrochlorothiazide) 25 Mg Tablet 25 MG PO DAILY (Reported ) Metoprolol Succinate ER (Metoprolol Succinate ER) 100 Mg Tab.er.24h 100 MG PO DAILY (Reported) Omeprazole (Omeprazole) 20 Mg Capsule.dr 20 MG PO QAM (Reported) As needed Albuterol HFA (Proair HFA) 8.5 Gm Hfa.aer.ad 2 PUFFS INHALATION Q4H PRN PRN For Shortness of Breath (Reported) Oxycodone (Roxicodone) 5 Mg Tablet 5 MG PO Q4H PRN PRN For Pain (Reported) Followup Plan Discharge Diet: Heart Healthy Discharge Activity: Limited until seen by PCP Patient Instructions Continue antibiotics for pneumonia. Take amoxicillin 1000 mg every 8 hours for 6 days. While taking antibiotics, you should also take probiotics, such as eating yogurt or sauerkraut. For atrial fibrillation, start taking aspirin 81 mg once daily. Follow up with your primary care provider in 1 week to have a repeat EKG to look for atrial fibrillation and to discuss possibly altering your anti-coagulation. At your follow up appointment with your primary care provider, you should discuss seeking treatment for opioid dependence. You should also follow up with a pot sander for further investigation into atrial fibrillation. Eat 2 bananas per day. Follow up BMP to check your potassium level in 1 week. Follow-up Provider: TERESA HERNANDEZ MD Follow-up with PCP in: 1 week Danielle Huffman DO Dec 22, 2016 13:22
--- NOTE | 2016-12-22 13:59 | DRSVH ---
[facility] [address] [place] [address] Echocardiogram Report Name: RYAN HIGH Date : 12/22/2016 Height: 72 in Hospital Exam Location: [facility] Weight: 159 lb Gender: Male BSA: 1.9 m2 : 1960 Age: 56 yrs BP: 126/77 mmHg Reason For Study: Atrial fibrillation, NEW Performed By: Oleg Allison Referring Physician: JUAN BAHENA Interpretation Summary The left ventricle is normal in size. The ejection fraction is estimated to be 60-65%. The right ventricle grossly appears normal in size with probable normal systolic function. There is mild tricuspid regurgitation. Pulmonary artery pressures cannot be estimated because of the lack of a measurable TR jet velocity. The IVC is of normal diameter and collapses greater than 50% with a sniff. This suggests a low right atrial pressure of 3 mm Hg. Procedure: A two-dimensional transthoracic echocardiogram with color flow and Doppler was performed. The study quality was technically adequate. There is no prior echocardiogram noted for this patient. The patient was in sinus tachycardia with heart rates between 97-104 bpm during the exam. Left Ventricle: The left ventricle is normal in size. Proximal septal thickening is noted. There is no echo evidence for significant left ventricular outflow tract obstruction. There is no thrombus. The ejection fraction is estimated to be 60-65%. There are no focal wall motion abnormalities. The E/E'is normal. Right Ventricle: The right ventricle grossly appears normal in size with probable normal systolic function. Atria: The left atrium grossly appears normal in size. The right atrium grossly appears normal in size. The interatrial septum is intact with no evidence for an atrial septal defect. The thickening of interatrial septum suggests lipomatous hypertrophy. Mitral Valve: The mitral valve leaflets are slightly calcified. There is trace mitral regurgitation. Aortic Valve: The aortic valve is trileaflet. The aortic valve opens well. There is no aortic valve stenosis. No aortic regurgitation is present. Tricuspid Valve: The tricuspid valve is not well visualized, but is grossly normal. Pulmonary artery pressures cannot be estimated because of the lack of a measurable TR jet velocity. There is mild tricuspid regurgitation. Pulmonic Valve: The pulmonic valve is not well visualized. There is no pulmonic valvular regurgitation. Great Vessels: The aortic root is normal size. The ascending aorta is mildly enlarged. The pulmonary artery is normal size. The IVC is of normal diameter and collapses greater than 50% with a sniff. This suggests a low right atrial pressure of 3 mm Hg. Pericardium/ Pleura There is a trivial pericardial effusion noted. There is an anterior echo-free space consistent with a fat pad. There are no echocardiographic indications of cardiac tamponade. There is no pleural effusion. MMode/2D Measurements & Calculations LVIDd: 5.0 cm IVC diam LVOT diam: 2.2 cm LV brothers. diameter/BSA LVIDs: 3.0 cm : 1.5 cm Ao root diam (cm/m^2): 2.6 FS: 40.5 % EPSS: 0.13 cm asc Aorta Diam IVSd: 0.94 cm LVPWd: 1.0 cm Ao Arch Diam (Prox Trans): 2.4 cm LV sys. diameter/BSA (cm/m^2): 1.5 Doppler Measurements & Calculations Ao V2 max: 111.6 cm/secMV E max jacob MV E/A: 0.86 PA V2 max Ao max P.0 mmHg : 64.0 cm/sec Med Peak E' Jacob : 82.8 cm/sec Ao mean P.9 mmHg MV A max jacob PA mean PG LVOT Max Jacob : 74.5 cm/sec E/E' med: 8.8 : 1.6 mmHg : 94.2 cm/sec Lat Peak E' Jacob ROSSY(I,D): 3.2 cm E/E' lat: 8.3 sev ratio: 0.85 E/e' average: 8.6 MV A dur: 0.10 sec MV dec time: 0.17 sec Ao V2 mean LV V1 max PG PA V2 mean : 81.5 cm/sec : 61.1 cm/sec Ao V2 VTI: 18.3 cmLV V1 VTI: 15.5 cm PA pr(Accel) : 32.3 mmHg ROSSY(V,D): 3.2 cm2 ROSSY indexed to BSA (cm^2/m^2): 1.7 Reading Physician:MINNA
[2016-12-22] MEDS ORDERED: levoFLOXacin Inj 750 MG in IV Premix 1 EACH IV SCH (20:30)
[2016-12-22] MEDS ORDERED: Vancomycin Serum Trough XX ONE (21:30)
== END 2016-12-22 13:30 | disposition home or self-care (01) ==
LOC: SED 17:07 → INTOOBSV 21:52 → MPC 21:52
PROVIDERS: ADMIT Internal Medicine; ATTEND Internal Medicine
DX: J13 Pneumonia due to Streptococcus pneumoniae (principal); I48.91 Unspecified atrial fibrillation; R00.0 Tachycardia, unspecified; E87.6 Hypokalemia; F10.20 Alcohol dependence, uncomplicated; F17.210 Nicotine dependence, cigarettes, uncomplicated; I10 Essential (primary) hypertension; E03.9 Hypothyroidism, unspecified; K25.9 Gastric ulcer, unspecified as acute or chronic, without hemorrhage or perforation; G89.4 Chronic pain syndrome; K52.9 Noninfective gastroenteritis and colitis, unspecified; E83.42 Hypomagnesemia; F11.10 Opioid abuse, uncomplicated; E78.5 Hyperlipidemia, unspecified; M10.9 Gout, unspecified; F12.90 Cannabis use, unspecified, uncomplicated; Z79.51 Long term (current) use of inhaled steroids; Z79.82 Long term (current) use of aspirin
CPT/HCPCS: 36415; 71010; 80053; 83735; 84145; 84439; 84443; 84484; 85025; 85610; 86403; 87040; 87081; 87449; 87633; 93005; 94640; 94664; 96365; 96366; 96367; 96375; 96376; 99285; C8929; G0378; J1650; J1956; J2543; J3370; J7030; J7040; J7050; J7620

== ENCOUNTER 2017-01-07 14:37 | Emergency (ER) | payer OTHER ==
[~2017-01-07] VITALS: Ht 182.9 cm; Wt 72.7 kg
[~2017-01-07 14:37] MED LIST: ALBU8.5H2 INHALATION; AMOX500T2 PO; ASCO100089 PO; ASPI-973 PO; HYDR25TA4 PO; METO-274 PO; OMEP20CA11 PO; OXYC-474 PO; ZYL100 PO
[2017-01-07 14:42] VITALS: BP 136/89; PULSE 104; RESP 15; O2SAT 100
--- NOTE | 2017-01-07 14:54 | ED.REPORT ---
HPI-Chest Pain 40 and Over Date of Service Jan 07, 2017 ED Provider: Ryan Guevara DO 56 year old male presents to the ER complaining of several months of chest pain with deep inspiration, worsening over the past two days. Symptoms have been present since his discharge from the hospital here after he was hospitalized for pneumonia in late October/early November 2016, at which time he states that he was placed on life-support. He is unable to identify any actions or behaviors that exacerbate or relieve symptoms. Patient denies SOB, or lower extremity swelling. Patient was referred by Dr. Bull, Cardiology, for pericarditis rule-out. Nursing Notes Stated Complaint: CHEST PAIN, RECENT PNEUMONIA Chief Complaint: Chest Pain Nursing Notes Reviewed: Yes Allergies: Coded Allergies: No Known Allergies (Verified , 12/21/16) Uncoded Allergies: No Known Allergies (Allergy, Severe, 05/16/04) Scheduled Allopurinol (Allopurinol) 100 Mg Tablet 100 MG PO BID Amoxicillin (Amoxicillin) 500 Mg Tablet 1,000 MG PO TID Amoxicillin/Clav K 875-125 mg (Augmentin 875-125 mg) 1 Each Tablet 1 TABLET PO BID Ascorbic Acid (Vitamin C) 1,000 Mg Tab.chew 1,000 MG PO DAILY Aspirin (Aspirin) 81 Mg Tablet 81 MG PO DAILY Colchicine (Colchicine) 0.6 Mg Tablet 0.6 MG PO BID Doxycycline Hyclate (Doxycycline Hyclate) 100 Mg Capsule 100 MG PO BID Hydrochlorothiazide (Hydrochlorothiazide) 25 Mg Tablet 25 MG PO DAILY Metoprolol Succinate ER (Metoprolol Succinate ER) 100 Mg Tab.er.24h 100 MG PO DAILY Omeprazole (Omeprazole) 20 Mg Capsule.dr 20 MG PO QAM Scheduled PRN Albuterol HFA (Proair HFA) 8.5 Gm Hfa.aer.ad 2 PUFFS INHALATION Q4H PRN PRN For Shortness of Breath Oxycodone (Roxicodone) 5 Mg Tablet 5 MG PO Q4H PRN PRN For Pain General Time Seen by MD: 14:54 Chief Complaint Chest pain Hx Obtained From: Patient Arrived By: Walk-in Sudden in Onset?: No Onset Occurred: More than a week ago... (3 months) Symptom Duration: Since onset Location: : Substernal Quality: Pleuritic Severity: Current: Mild Severity: Maximum: Moderate Associated with: Denies: Shortness of Breath Pertinent Negative: Pt denies other symptoms Similar Sx Previous: Yes Past Medical History Past Medical History Hospitalization for Pneumonia, October 2016 Smoking History Current Every Day Smoker Review of Systems Constitutional: Denies: Chills, Fever Respiratory: Denies: Non-productive cough, Shortness of breath Cardiovascular: Reports: Chest pain GI: Denies: Nausea, Vomiting Musculoskeletal: Denies: Extremity swelling Skin: Denies Diaphoresis Complete sys rev & neg: except as marked. Physical Exam Initial Vital Signs Vital Signs (First) Date Time Temp Pulse Resp B/P Pulse Ox O2 Delivery O2 Flow Rate FiO2 01/07/17 14:42 36.6 104 15 136/89 100 Initial VS: Reviewed Head / Eyes: Atraumatic, Normocephalic Neck: Supple, Non-tender, Full range of motion Extremities: Vascular intact, Neuro intact, No swelling, No tenderness Skin: Warm, Dry, No cyanosis Neurologic: Alert, Oriented, Nonfocal Psychiatric: Mood/affect normal, Behavior normal, Normal thought content General/Constitutional: Awake, Alert, No acute distress, Well appearing Respiratory / Chest: Breath sounds NL, Breath sounds = bilat, No respiratory distress, No rales, No rhonchi, No wheezing, No stridor, No chest tenderness Cardiovascular: Heart rate NL, Regular rhythm, Heart sounds NL, No murmurs, Peripheral circulation NL, Pulses = bilaterally, No gross BP differential Abdomen: Soft, Non-tender, No guarding, No rebound, No distention Interpretation & Diagnostics Lab Results Interpretation Result Diagram: 01/07/17 1500 01/07/17 1500 Test 01/07/17 15:00 White Blood Count 14.2th/mm3 (3.8-10.1) Red Blood Count 4.08mil/mm3 (4.40-5.80) Hemoglobin 11.5g/dL (13.8-17.2) Hematocrit 36.9% (41.0-50.0) Mean Corpuscular Volume 90.4fL (81-100) Mean Corpuscular Hemoglobin 28.2pg (27.0-35.0) Mean Corpuscular Hemoglobin Concent 31.2% (32.0-37.0) Red Cell Distribution Width 16.3% (12.3-15.4) Platelet Count 295bil/L (150-400) Neutrophils (%) (Auto) 78.8% (40-74) Lymphocytes (%) (Auto) 12.6% (14-46) Monocytes (%) (Auto) 8.0% (4-12) Eosinophils (%) (Auto) 0.1% (0-5) Basophils (%) (Auto) 0.4% (0-3) D-Dimer 0.58mg/L FEU (<0.50) Sodium Level 132mEq/L (134-144) Potassium Level 3.8mEq/L (3.5-5.2) Chloride Level 91mEq/L (97-108) Carbon Dioxide Level 23mmol/L (18-29) Blood Urea Nitrogen 15mg/dL (6-24) Creatinine 0.60mg/dL (0.76-1.27) Estimat Glomerular Filtration Rate 149mL/min (>59) Glucose Level 106mg/dL (60-99) Calcium Level 9.6mg/dL (8.5-10.1) Magnesium Level 1.3mg/dL (1.6-2.6) Total Bilirubin 0.7mg/dL (0.0-1.2) Aspartate Amino Transf (AST/SGOT) 22U/L (0-50) Alanine Aminotransferase (ALT/SGPT) 11U/L (0-44) Alkaline Phosphatase 158U/L (25-150) Total Creatine Kinase 54U/L (21-232) Creatine Kinase MB < 1.0ng/mL (0.0-10.4) Creatine Kinase MB % % (0.0-5.0) Troponin T < 0.010ug/L (0.0-0.011) Pro-B-Type Natriuretic Peptide 92.89pg/mL (0-210) Total Protein 8.1g/dL (6.4-8.4) Albumin 4.1g/dL (3.4-5.0) Hold Loera Top Tube Received (Received) ECG Interpretation ECG Interpretation: Sinus rhythm, rate 91 Time: 16:04 Interpreted by: ED physician X-Ray Chest Interpretation Chest Xray Interpretation: IMPRESSION: Improving aeration at the left lung base with residual mild airspace disease. Dictated by: Marino Almeida M.D. on 01/07/2017 at 14:39 Approved by: Marino Almeida M.D. on 01/07/2017 at 14:40 View: Portable Interpretation / Wet Read by: Interpret - Radiologist CT Chest Interpretation IMPRESSION: 1. No pulmonary was. 2. Left lower lobe pneumonia with small parapneumonic effusion. 3. Findings suggestive of right greater than left gynecomastia, which could be confirmed with mammography, if clinically indicated. 4. 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 5. Coronary artery disease. Dictated by: Jose Lofton M.D. on 01/07/2017 at 16:30 Approved by: Jose Lofton M.D. on 01/07/2017 at 16:35 Study type: CT pulm angiogram Interpretation / Wet Read by: Interpret - Radiologist Re-Eval/Medical Decision Med Decision/Clinical Course Symptoms either represent pericarditis or recurrent left lower lobe infiltrate, will treat with colchicine, ibuprofen when necessary, Augmentin and doxycycline. Return and follow-up precautions given. Patient declined admission Source of Hx: Old records Time of Eval: 16:46 Re-Evaluation/Progress Note: Patient endorses improvement, says that he "feels fine". Discussed possibility of admission. He would prefer to be discharged home. Return precautions given. All other questions addressed. Consultation #1: Referral / Consult Name: Sigifredo Bull MD Consulted With: Cardiology Call Returned at: 16:43 Note: Start on ibuprofen and colchicine. Consultation #2: Referral / Consult Name: Louie Zavala MD Consulted With: On-call physician (Infectious Disease) Call Returned at: 17:01 Note: Start on Augmentin and doxycycline. Counseled Regarding: Diagnosis, Lab results, Need for follow-up, When/why to return to ED Discharge & Departure Primary Impression: Pneumonia Disposition: Home Discharge Condition All VS Reviewed: Yes Condition: Stable Additional Instructions: You have recurrent pneumonia. On CAT scan is still see evidence of a left lower lobe pneumonia with a small parapneumonic effusion. You should begin taking Augmentin and doxycycline. Additionally, cardiology is concerned you may have pericarditis which is inflammation around the lining of your heart. Take colchicine as prescribed. Use ibuprofen as needed for pain. Call your regular doctor for close follow-up. Return to the ER as needed if worse. Referrals: RACHEL GARCIA MD (PCP) Scribe Attestation Portions of this note were transcribed by Christian Garcia. I, Dr. Guevara, personally performed the history, physical exam and medical decision-making; I reviewed and confirmed the accuracy of the information in the transcribed note. Signed by: Savita Winter, 01/07/2017 and 17:05 copies to: RACHEL GARCIA MD, Timothy S DO Jan 07, 2017 14:54 CHRISTIAN GARCIA Jan 07, 2017 15:04
[2017-01-07 15:18] LABS: BASOPHILS % (AUTO) 0.4 % (0-3); EOSINOPHILS % (AUTO) 0.1 % (0-5); Mean Corpuscular Hemoglobin 28.2 pg (27.0-35.0); Mean Corpuscular Volume 90.4 fL (81-100); NEUTROPHILS % (AUTO) 78.8 % (40-74); Platelet Count 295 bil/L (150-400)
--- NOTE | 2017-01-07 15:42 | DRSVH ---
PROCEDURE: X-RAY CHEST ONE VIEW, PORTABLE ([id number]) INDICATIONS: Chest pain. TECHNIQUE: One view of the chest was acquired. COMPARISON: [facility], CR, XR CHEST 1VW (PORTABLE), 12/21/2016, 17:17. [facility], CR, CHEST 2VW, 06/15/2010, 13:47. FINDINGS: Surgical changes and devices: None. Lungs and pleura: The aeration of the lungs is similar to the previous exam with partial obscuration of the left diaphragm related to minimal air space disease. The degree of airspace disease is less p ronounced on the current study. No new consolidation, large effusion, or pneumothorax is evident. Mediastinum: Mediastinal contours appear normal. Heart size is normal. Bones and chest wall: No suspicious bony lesions. Overlying soft tissues appear unremarkable. IMPRESSION: Improving aeration at the left lung base with residual mild airspace disease. Dictated by: Marino Almeida M.D. on 01/07/2017 at 14:39 Approved by: Marino Almeida M.D. on 01/07/2017 at 14:40
[2017-01-07 15:45] LABS: Creatine Kinase 54 U/L (21-232); Magnesium 1.3 mg/dL (1.6-2.6)
[2017-01-07 15:47] LABS: TROPONIN T < 0.010 ug/L (0.0-0.011)
[2017-01-07] MEDS ORDERED: 0.9% Sodium Chloride 1,000 ML IV ONE (15:55)
[2017-01-07] MEDS ORDERED: Magnesium Sulf 4 Gm/100 mL H2O 4 GM in IV Premix 1 EACH IV ONE (15:55)
--- NOTE | 2017-01-07 16:36 | DRSVH ---
PROCEDURE: CT ANGIO CHEST PULMONARY EMBOLISM ([id number]) INDICATIONS: pleuritic CP, elevated ddimer, recent hospitalizat TECHNIQUE: After the administration of intravenous contrast, 2 mm thick sections acquired from the pulmonary api ky to the posterior costophrenic angles. 3-dimensional maximum intensity projection (MIP) coronal a nd sagittal reformats were then acquired through the thorax. For radiation dose reduction, the follo wing was used: automated exposure control, adjustment of mA and/or kV according to patient size. COMPARISON: [facility], CT, ANGIO CHEST, 03/07/2011, 13:34. FINDINGS: Image quality: Excellent. Pulmonary arteries: Pulmonary arteries are normal in size, and demonstrate no intraluminal filling d efects to suggest central pulmonary embolism. Lungs and pleura: Lungs are clear. The there is mild right base scarring versus atelectasis. There i s moderate patchy airspace opacity within the left lower lobe posteriorly. No pneumothorax. Small le ft pleural effusion. Central and peripheral airways are patent. Mediastinum: Heart size is normal, without pericardial effusion. There is calcification of the pastor nary vasculature. No mediastinal or hilar adenopathy. Thoracic aorta is normal in caliber and enhanc ement. Esophagus is normal in caliber, without hiatal hernia. Bones and chest wall: Subchondral geographic curvilinear sclerotic density is seen within the bilater al humeral heads. There is increased subareolar soft tissue density bilaterally, right greater than l eft. Ribs and thoracic spine appear intact throughout. Thyroid gland is within normal limits. No ax illary or supraclavicular adenopathy. Abdomen: Visualized upper abdominal solid organs appear normal in the early arterial phase of enhanc ement. IMPRESSION: 1. No pulmonary was. 2. Left lower lobe pneumonia with small parapneumonic effusion. 3. Findings suggestive of right greater than left gynecomastia, which could be confirmed with mammogr aphy, if clinically indicated. 4. 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 5. Coronary artery disease. Dictated by: oJse Lofton M.D. on 01/07/2017 at 16:30 Approved by: Jose Lofton M.D. on 01/07/2017 at 16:35
--- NOTE | 2017-01-07 16:46 | DRSVH ---
[facility] [address] [place] [address] Echocardiogram Report Name: RYAN HIGH Date : 01/07/2017 Height: 72 in Hospital Exam Location: [facility] Weight: 160 lb Gender: Male BSA: 1.9 m2 : 1960 Age: 56 yrs BP: 136/89 mmHg Reason For Study: PERICARDITIS Ordering Physician: HOSPITALIST FRANCISCAerformed By: Keith Grossman Referring Physician: Kendrick GARCIA Interpretation Summary Limited Echo to assess pericarditis: Normal left ventricular size and function. No pericardial effusion. No significant change compared to the echo done 12/22/2016. Procedure: A limited 2D, color and Doppler echocardiogram was performed to assess for pericardial effusion. The study quality was technically adequate. Comparison is made with the echocardiogram of 12/22/16. The patient was in normal sinus rhythm during the exam. Left Ventricle: Left ventricular size is at the upper limits of normal. There is normal left ventricular wall thickness. The ejection fraction is estimated to be 60-65%. Left ventricular systolic function is normal. There are no focal wall motion abnormalities. Aortic Valve: The aortic valve opens well. Great Vessels: The ascending aorta is normal in size. The IVC is of normal diameter and collapses greater than 50% with a sniff. This suggests a low right atrial pressure of 3 mm Hg. Pericardium/ Pleura There is no pericardial effusion. There is no pleural effusion. MMode/2D Measurements & Calculations LVIDd: 5.6 cm IVC diam asc Aorta LV brothers. diameter/BSA LVIDs: 3.7 cm : 1.3 cm Diam: 3.4 cm (cm/m^2): 2.9 FS: 33.4 % IVSd: 0.79 cm LVPWd: 0.87 cm LV sys. diameter/BSA (cm/m^2): 1.9 Reading Physician:04:46 PM
[2017-01-07 17:02] VITALS: BP 132/86; PULSE 95; RESP 21; O2SAT 100
[2017-01-07] MEDS ORDERED: AMOX-366 PO (17:02)
[2017-01-07] MEDS ORDERED: DOXY100C2 PO (17:02)
[2017-01-07] MEDS ORDERED: COLC0.6T55 PO (17:40)
[2017-01-07 18:25] VITALS: BP 151/93; PULSE 101; RESP 16; O2SAT 97
== END 2017-01-07 18:28 | disposition home or self-care (01) ==
LOC: SED 14:37
DX: J18.9 Pneumonia, unspecified organism (principal); Z79.82 Long term (current) use of aspirin; F17.200 Nicotine dependence, unspecified, uncomplicated
CPT/HCPCS: 36415; 71010; 71275; 80053; 82550; 82553; 83735; 83880; 84484; 85025; 85378; 93005; 96361; 96374; 99285; C8924; J3475; J7030; Q9967